=== PATIENT | male | born 1970 | race Caucasian/White ===

== ENCOUNTER 2023-10-26 22:10 | Emergency (ER) | payer OTHER ==
[~2023-10-26] VITALS: Ht 188 cm; Wt 101.2 kg
[2023-10-26 22:17] VITALS: BP 154/97; PULSE 75; RESP 18; TEMP 98.1; O2SAT 98
[2023-10-26] MEDS: FLUORESCEIN OPTH STRIP 1 MG OP ONE (23:03)
[2023-10-26] MEDS: TETRACAINE HCL/PF 0.5% OPTH 4 ML BTL OP ONE (23:03)
[2023-10-27] MEDS ORDERED: ERYT5OIN51 RIGHT EYE (00:07)
[2023-10-27] MEDS ORDERED: POLY15SO74 RIGHT EYE (00:07)
[2023-10-27 00:10] VITALS: BP 154/97; PULSE 75; RESP 18; TEMP 98.1; O2SAT 98
== END 2023-10-27 00:10 | disposition home or self-care (01) ==
LOC: MED 22:10
DX: S05.01XA Injury of conjunctiva and corneal abrasion without foreign body, right eye, initial encounter (principal); L25.9 Unspecified contact dermatitis, unspecified cause; Z79.899 Other long term (current) drug therapy; X58.XXXA Exposure to other specified factors, initial encounter; Y93.89 Activity, other specified; Y92.89 Other specified places as the place of occurrence of the external cause; Y99.8 Other external cause status
CPT/HCPCS: 99283